=== PATIENT | male | born 1990 | race Caucasian/White ===

== ENCOUNTER 2024-02-03 08:44 | Outpatient (CLI) | payer OTHER, SELFPAY ==
[2024-02-03 09:06] LABS: Basophils % 0.4 % (0.1-2.0); Eosinophils # 0.1 K/mm3 (0.0-0.4); Eosinophils % 0.7 % (0.1-12.0); Hematocrit 48.7 % (42.0-52.0); Hemoglobin 16.7 g/dL (14.1-18.0); Lymphocytes # 1.8 K/mm3 (0.7-4.5); Lymphocytes % 16.1 % (10-50); Mean Corpuscular HGB Conc 34.4 g/dL (31.8-35.4); Mean Corpuscular Hemoglobin 32.5 pg (27.0-31.2); Mean Corpuscular Volume 94.5 fl (80-94); Mean Platelet Volume 7.6 fl (7.4-10.4); Monocytes # 0.7 K/mm3 (0.1-1.0); Monocytes % 6.2 % (1.7-9.3); Neutrophils # 8.6 K/mm3 (1.8-7.8); Neutrophils % 76.7 % (37.0-80.0); Platelet Count 208 K/mm3 (142-424); Red Blood Count 5.15 M/mm3 (4.60-6.20); Red Cell Distribution Width 12.7 % (11.5-17.5); White Blood Count 11.2 K/mm3 (4.8-10.8)
--- NOTE | 2024-02-03 09:38 | CT_ITS ---
FINAL REPORT TECHNIQUE: Postcontrast axial images through the abdomen and pelvis were performed. This study was performed with techniques to keep radiation doses as low as reasonably achievable, (ALARA). Individualized dose reduction techniques using automated exposure control or adjustment of mA and/or kV according to the patient's size were employed. CLINICAL HISTORY: LOWER ABD PAIN,BOWEL CHANGES,H/O DIVERTICULITIS FINDINGS: Abdomen: The lung bases are clear. The liver is normal in size and attenuation. The gallbladder is normal. The spleen is unremarkable. The adrenals are normal. The pancreas is unremarkable. The kidneys enhance appropriately. The aorta is normal in caliber. No free fluid or adenopathy is identified. No findings for mechanical bowel obstruction are identified. Pelvis: The appendix is unremarkable. There is wall thickening with surrounding inflammation of the proximal sigmoid colon most consistent with diverticulitis. There is no evidence of obstruction or abscess. There is extensive underlying diverticular disease. The urinary bladder is unremarkable. No free fluid, free air, abscess or adenopathy is identified. IMPRESSION: Diverticulitis of the proximal sigmoid colon without obstruction or abscess. Reviewed, Interpreted and Dictated by Aarti Rosas MD Transcribed by Adriane Thomas Authenticated and [facility]
[2024-02-03 10:09] LABS: Chloride 105 mmol/L (98-107); Potassium 4.2 mmoL/L (3.5-5.1); Sodium 140 mmol/L (136-145)
[2024-02-03 10:11] LABS: Alanine Aminotransferase 47 U/L (12-78); Aspartate Amino Transferase 39 U/L (17-59); Blood Urea Nitrogen 18 mg/dl (9-20); Estimated Glomerular Filt Rate 128 ml/min (>60); GFR (African American) 155 ML/MIN (>60)
[2024-02-03 10:12] LABS: Albumin Level 4.1 g/dl (3.5-5.0); Albumin/Globulin Ratio 1.5 (1.1-1.8); Alkaline Phosphatase 71 U/L (38-126); Anion Gap 8.2 mEq/L (5-15); Bilirubin,Total 1.6 mg/dl (0.2-1.3); Calcium 9.6 mg/dl (8.4-10.2); Carbon Dioxide 31 mmol/L (22.0-30.0); Globulin 2.8 g/dL (1.3-3.2); Glucose 124 mg/dl (74-100); Total Protein,Serum 6.9 g/dl (6.3-8.2)
[2024-02-03] MEDS: IOPAMIDOL-370 (76%);100ML BOTTLE 75 ML IV (10:59)
[2024-02-03] MEDS: SODIUM CHLORIDE 0.9% 10ML SYR (RAD ONLY) 10 ML IV (10:59)
== END 2024-02-03 23:59 | disposition home or self-care (01) ==
PROVIDERS: PCP Nurse Practitioner Family; Visit Provider Nurse Practitioner Family
DX: R10.30 Lower abdominal pain, unspecified (principal); R19.4 Change in bowel habit; Z87.19 Personal history of other diseases of the digestive system
CPT/HCPCS: 36415; 74177; 80053; 85025; Q9967

== ENCOUNTER 2024-10-25 10:46 | Outpatient (CLI) | payer OTHER, SELFPAY ==
--- NOTE | 2024-10-25 10:54 | XR_ITS ---
FINAL REPORT CLINICAL HISTORY: ULCER OF RIGHT FOOT, LIMITED TO BREAKDOWN OF SKIN FINDINGS: Right foot Three views were obtained. There is sideplate and screws securing the distal fibula. There is a disrupted transverse screw securing the distal fibula and tibia. There is an osteophyte along the dorsal aspect of the distal talus. There is a small plantar spur. IMPRESSION: Post surgical changes as above. Reviewed, Interpreted and Dictated by Ferny Capone MD Transcribed by Adriane Thomas Authenticated and [facility]
== END 2024-10-25 23:59 | disposition home or self-care (01) ==
LOC: RAD 10:48
PROVIDERS: PCP Nurse Practitioner Family; Visit Provider Internal Medicine Adolescent Medicine
DX: L97.511 Non-pressure chronic ulcer of other part of right foot limited to breakdown of skin (principal); B95.4 Other streptococcus as the cause of diseases classified elsewhere
CPT/HCPCS: 73630; 87070; 87077; 87205

== ENCOUNTER 2024-11-28 18:48 | Outpatient (CLI) | payer OTHER, SELFPAY | END 2024-11-28 23:59 | disposition home or self-care (01) | LOC: LAB.DROPOF 18:56 | PROVIDERS: PCP Podiatrist; Visit Provider Podiatrist | DX: L97.509 Non-pressure chronic ulcer of other part of unspecified foot with unspecified severity (principal); E11.621 Type 2 diabetes mellitus with foot ulcer; L84 Corns and callosities | CPT/HCPCS: 87070; 87077; 87186; 87205 ==

== ENCOUNTER 2024-12-05 09:38 | Outpatient (CLI) | payer OTHER, SELFPAY ==
--- NOTE | 2024-12-05 09:45 | XR_ITS ---
FINAL REPORT CLINICAL HISTORY: Foot Pain diabetic ulcer plantar surface, around 3-5 metatarsal area COMPARISON: 10/25/2024 FINDINGS: Three views of the right foot show no evidence of acute displaced fracture or dislocation of the visualized bony architecture. There are moderate degenerative changes at the midfoot. Nonspecific sclerosis is noted along the bases of the third and fourth digits which could be degenerative or chronic infection. There are moderate degenerative changes of the talonavicular joint. Post-ORIF changes are noted of the distal fibula. IMPRESSION: Chronic changes as above without evidence of bony destruction. Reviewed, Interpreted and Dictated by Aarti Rosas MD Transcribed by Jaye Chaidez Authenticated and [facility]
[2024-12-05 10:12] LABS: Basophils % 0.4 % (0.1-2.0); Eosinophils # 0.1 K/mm3 (0.0-0.4); Eosinophils % 1.3 % (0.1-12.0); Hematocrit 48.3 % (42.0-52.0); Hemoglobin 17.4 g/dL (14.1-18.0); Lymphocytes # 1.7 K/mm3 (0.7-4.5); Lymphocytes % 24.5 % (10-50); Mean Corpuscular Hemoglobin 31.4 pg (27.0-31.2); Mean Corpuscular Volume 87.2 fl (80-94); Monocytes # 0.7 K/mm3 (0.1-1.0); Monocytes % 10.1 % (1.7-9.3); Neutrophils # 4.3 K/mm3 (1.8-7.8); Neutrophils % 63.4 % (37.0-80.0); Platelet Count 241 K/mm3 (142-424); Red Blood Count 5.54 M/mm3 (4.60-6.20); Red Cell Distribution Width 12.1 % (11.5-17.5); White Blood Count 6.8 K/mm3 (4.8-10.8)
[2024-12-05 10:40] LABS: Alanine Aminotransferase 53 U/L (12-78); Albumin Level 4.7 g/dl (3.5-5.0); Albumin/Globulin Ratio 1.7 (1.1-1.8); Alkaline Phosphatase 63 U/L (38-126); Anion Gap 12.2 mEq/L (5-15); Aspartate Amino Transferase 53 U/L (17-59); Bilirubin,Total 1.2 mg/dl (0.2-1.3); Blood Urea Nitrogen 16 mg/dl (9-20); Calcium 9.7 mg/dl (8.4-10.2); Carbon Dioxide 31 mmol/L (22.0-30.0); Chloride 102 mmol/L (98-107); Estimated Glomerular Filt Rate 109 ml/min (>60); GFR (African American) 132 ML/MIN (>60); Globulin 2.7 g/dL (1.3-3.2); Glucose 181 mg/dl (74-100); Potassium 4.2 mmoL/L (3.5-5.1); Sodium 141 mmol/L (136-145); Total Protein,Serum 7.4 g/dl (6.3-8.2)
[2024-12-05 10:45] LABS: C-Reactive Protein 2.6 mg/L (0-4)
[2024-12-05 10:50] LABS: Erythrocyte Sedimentation Rate 3 mm/hr (0-15)
== END 2024-12-05 23:59 | disposition home or self-care (01) ==
LOC: LAB 09:38
PROVIDERS: PCP Nurse Practitioner Family; Visit Provider Podiatrist
DX: R60.9 Edema, unspecified (principal); M79.671 Pain in right foot
CPT/HCPCS: 36415; 73630; 80053; 85025; 85651; 86140

== ENCOUNTER 2024-12-28 08:03 | Outpatient (RCR) | payer OTHER, SELFPAY ==
--- NOTE | 2024-12-28 16:33 | HMH.PTOPWND ---
Rehab Outpt Wound Evaluation Rehab OP Wound Evaluation Start: 12/28/24 16:24 Freq: Status: Active Protocol: Document 12/28/24 16:24 TIFFANY (Rec: 12/28/24 16:33 PHORCORDELIA [id number]) E-signed By Kamran Zelaya, PT Subjective/History History History This is the initial PT wound care eval for Wade Acosta, 34 yowm who presents with R lateral foot DFU x ~ 2 mos. 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 This blister spread to a callus on the lateral side of his foot which then became an abscess. He reports no c/o pain at this time. Subjective Subjective Pt R foot tested for neuropathy with 10g monofilament. R foot with decreased sensation from the ankle distally. R lateral foot wound with MOODERATE amt of sanguineous drainage noted this date. Mostly granulation tissue, but hyperkeratotic rim is noted. Wound Eval Wound Right Lateral Foot Wound Type Diabetic Foot Ulcer Is This a Chronic Wound Yes Wound Length (cm) 1.9 Wound Width (cm) 2.2 Wound Depth (cm) 0.3 Wound Bed Appearance Beefy Red Percentage Granulated (%) 99 Wound Margins Description Well Defined Surrounding Tissue Appearance [place] Drainage Description Sanguineous Drainage Amount Moderate Drainage Odor No Odor Wound Topical Solution/Irrigant Saline Irrigant Primary Dressing collagen Comment puracol Wound Secondary Dressing Type Composite Comment optifoam gentle border Wound Debridement Method Sharps,Gauze,Mechanical Wound Debridement Amount of Tissue Minimal Removed Dressing Change Patient Tolerance Tolerated Well Mariano-Garza Wound Assessment Tool Assessment Wound size 2=Length x Width 4--<16 sq cm Wound depth 3=Full thickness skin loss involving damage or necrosis of Wound edges 3=Well-defined, not attached to wound base Wound undermining 1=None present Necrotic tissue type 1=Non visible Necrotic tissue amount 1=None visible Exudate type 2=Bloody Exudate amount 4=Moderate Skin color surrounding wound 1=[place] or normal for ethnic group Peripheral tissue edema 1=No swelling or edema Peripheral tissue induration 1=None present Granulation tissue 2=Bright, beefy red;75% to 100 % of wound filled &/or tissue overgrowth Epithelialization 5= < 25% wound covered Wound assessment total score 27 Wound Problems/Impairments Impairments Problems/Impairmments Wound Care Needs,Impaired Self Care/Self Management Prognosis Rehab Potential Good Comment Skilled therapy is indicated to decrease overall wound surface area in order to return pt to PLOF. Clinical Impression Consistent with Diagnosis Yes Short Term Goals Number of Weeks 4 Decrease Wound Area Yes: by 25% Salesperson [employer] Goals Number of Weeks 8 Decrease Wound Area Yes: by 75% Patient to be Ind w/ HEP Yes Patient to be Ind w/ Home Wound Care/ Yes Dressing Changes Outpatient Therapy Plan of Care Treatment Plan May Include Therapeutic Exercise Including Home Yes Exercise Program Manual Therapy Techniques Yes Neuromuscular Re-education Yes Therapeutic Activities to Return to Yes Previous Functional/Work Level ADL/Self Care Education Yes Wound Care Yes Eval/Re-Eval Yes Frequency Times per week 1-2 Duration Number of Weeks 8 Addendums This patient is a candidate for social No or vocational rehab? Patient/Guardian verbally acknowledges Yes understanding of treatment program and consents to further treatment? Patient/Guardian verbally acknowledges Yes understanding of diagnosis, prognosis and goals for treatment? Eval Complexity PT Charges 06597 - High Complexity PHYSICIAN CERTIFICATION: I certify the specified therapy services for Wade Acosta are required, authorized, and reviewed every 30 days.
== END 2024-12-28 23:59 | disposition home or self-care (01) ==
LOC: PT 08:03
PROVIDERS: PCP Nurse Practitioner Family; Visit Provider Podiatrist
DX: E11.621 Type 2 diabetes mellitus with foot ulcer (principal); L97.519 Non-pressure chronic ulcer of other part of right foot with unspecified severity
CPT/HCPCS: 97163

== ENCOUNTER 2025-01-23 08:00 | Outpatient (RCR) | payer OTHER, SELFPAY | END 2025-01-23 23:59 | disposition home or self-care (01) | LOC: PT 08:00 | PROVIDERS: PCP Nurse Practitioner Family; Visit Provider Podiatrist | DX: E11.621 Type 2 diabetes mellitus with foot ulcer (principal); L97.519 Non-pressure chronic ulcer of other part of right foot with unspecified severity | CPT/HCPCS: 97597 ==

== ENCOUNTER 2025-02-06 09:00 | Outpatient (CLI) | payer OTHER, SELFPAY | END 2025-02-06 23:59 | disposition home or self-care (01) | LOC: LAB.DROPOF 02-07 12:14 | PROVIDERS: PCP Nurse Practitioner; Visit Provider Nurse Practitioner | DX: E11.621 Type 2 diabetes mellitus with foot ulcer (principal); L97.509 Non-pressure chronic ulcer of other part of unspecified foot with unspecified severity | CPT/HCPCS: 87070; 87205 ==

== ENCOUNTER 2025-02-08 16:19 | Outpatient (CLI) | payer OTHER, SELFPAY ==
--- NOTE | 2025-02-08 16:33 | XR_ITS ---
FINAL REPORT CLINICAL HISTORY: Right foot DFU COMPARISON: 12/05/2024 FINDINGS: RIGHT FOOT 3 views of the right foot were obtained. There is no acute fracture or dislocation. There are moderate hypertrophic changes at the intertarsal joints. An os trigonum measures 10 mm. There is soft tissue edema over the dorsum of the foot measuring 2.1 cm. There is no evidence of bony erosion. A sideplate and screws are noted securing the distal fibula. IMPRESSION: No acute bony abnormality. Soft tissue edema and chronic/surgical changes. Reviewed, Interpreted and Dictated by Ferny Capone MD Transcribed by Jaye Chaidez Authenticated and [facility]
[2025-02-08 17:01] LABS: Basophils % 0.2 % (0.1-2.0); Eosinophils % 0.1 % (0.1-12.0); Hematocrit 44.2 % (42.0-52.0); Hemoglobin 15.7 g/dL (14.1-18.0); Immature Granulocytes # 0.06 10^3uL; Immature Granulocytes % 0.3 %; Lymphocytes # 1.7 K/mm3 (0.7-4.5); Lymphocytes % 9.7 % (10-50); Mean Corpuscular HGB Conc 35.5 g/dL (31.8-35.4); Mean Corpuscular Hemoglobin 30.8 pg (27.0-31.2); Mean Corpuscular Volume 86.7 fl (80-94); Monocytes # 1.4 K/mm3 (0.1-1.0); Monocytes % 7.9 % (1.7-9.3); Neutrophils # 14.4 K/mm3 (1.8-7.8); Neutrophils % 81.8 % (37.0-80.0); Nucleated Red Blood Cells # 0 10^3/uL; Nucleated Red Blood Cells % 0 %; Platelet Count 273 K/mm3 (142-424); Red Cell Distribution Width 11.8 % (11.5-17.5); Red Cell Distribution Width-SD 37.4 fL; White Blood Count 17.7 K/mm3 (4.8-10.8)
[2025-02-08 18:06] LABS: Erythrocyte Sedimentation Rate 21 mm/hr (0-15)
[2025-02-08 19:06] LABS: Alanine Aminotransferase 21 U/L (12-78); Albumin Level 4.3 g/dl (3.5-5.0); Albumin/Globulin Ratio 1.4 (1.1-1.8); Alkaline Phosphatase 77 U/L (38-126); Aspartate Amino Transferase 26 U/L (17-59); Bilirubin,Total 1.4 mg/dl (0.2-1.3); Blood Urea Nitrogen 20 mg/dl (9-20); Calcium 9.2 mg/dl (8.4-10.2); Carbon Dioxide 26 mmol/L (22.0-30.0); Chloride 102 mmol/L (98-107); Estimated Glomerular Filt Rate 109 ml/min (>60); GFR (African American) 132 ML/MIN (>60); Glucose 140 mg/dl (74-100); Sodium 136 mmol/L (136-145); Total Protein,Serum 7.3 g/dl (6.3-8.2)
[2025-02-08 19:12] LABS: C-Reactive Protein 61.2 mg/L (0-4)
[2025-02-08 22:32] LABS: Hemoglobin A1C 5.7 % (4.0-6.0)
== END 2025-02-08 23:59 | disposition home or self-care (01) ==
LOC: LAB 16:20
PROVIDERS: PCP Nurse Practitioner Family; Visit Provider Podiatrist
DX: E11.621 Type 2 diabetes mellitus with foot ulcer (principal); L97.509 Non-pressure chronic ulcer of other part of unspecified foot with unspecified severity; M79.671 Pain in right foot
CPT/HCPCS: 36415; 73630; 80053; 83036; 85025; 85651; 86140

== ENCOUNTER 2025-02-12 09:30 | Outpatient (CLI) | payer OTHER, SELFPAY | END 2025-02-12 23:59 | disposition home or self-care (01) | LOC: LAB.DROPOF 02-13 13:56 | PROVIDERS: PCP Podiatrist; Visit Provider Podiatrist | DX: L03.115 Cellulitis of right lower limb (principal); E11.8 Type 2 diabetes mellitus with unspecified complications; E11.621 Type 2 diabetes mellitus with foot ulcer; L97.509 Non-pressure chronic ulcer of other part of unspecified foot with unspecified severity | CPT/HCPCS: 87070; 87077; 87186; 87205 ==

== ENCOUNTER 2025-03-07 15:11 | Outpatient (CLI) | payer OTHER, SELFPAY ==
[2025-03-07 15:35] LABS: Basophils % 0.3 % (0.1-2.0); Eosinophils # 0.1 Kmm3 (0.0-0.4); Eosinophils % 1.6 % (0.1-12.0); Hematocrit 41.2 % (42.0-52.0); Hemoglobin 14.7 g/dL (14.1-18.0); Immature Granulocytes # 0.03 10^3uL; Immature Granulocytes % 0.4 %; Lymphocytes # 2.6 K/mm3 (0.7-4.5); Lymphocytes % 34.7 % (10-50); Mean Corpuscular HGB Conc 35.7 g/dL (31.8-35.4); Mean Corpuscular Hemoglobin 30.6 pg (27.0-31.2); Mean Corpuscular Volume 85.8 fl (80-94); Monocytes # 0.7 K/mm3 (0.1-1.0); Monocytes % 8.6 % (1.7-9.3); Neutrophils # 4.1 K/mm3 (1.8-7.8); Neutrophils % 54.4 % (37.0-80.0); Nucleated Red Blood Cells # 0 10^3/uL; Nucleated Red Blood Cells % 0 %; Platelet Count 224 K/mm3 (142-424); Red Cell Distribution Width 12.4 % (11.5-17.5); Red Cell Distribution Width-SD 38.3 fL; White Blood Count 7.5 K/mm3 (4.8-10.8)
--- NOTE | 2025-03-07 15:45 | CT_ITS ---
FINAL REPORT TECHNIQUE: Thin section axial images were obtained through the right foot before and after intravenous contrast injection. Coronal and sagittal reconstruction images were obtained from the axial data. Exam was performed using dose reduction technique per the ALARA principle. CLINICAL HISTORY: r/o 5th met osteomyelitis, abscess COMPARISON: Plain radiographs dated 02/08/2025 FINDINGS: Exam quality is limited as there is poor contrast bolus. Additionally, soft tissue windows were not submitted for interpretation. Only bone windows were submitted. There is subtle cortical irregularity along the plantar aspect of the head of the fifth metatarsal. Osteomyelitis is suspected. Otherwise, there is no acute fracture or dislocation of the foot. No additional areas of possible bone destruction. There is degenerative joint disease most pronounced at the lateral midfoot. There are postoperative changes from prior ORIF at the ankle. The screw traversing the distal tibiofibular articulation may be discontinuous near the joint space itself. Evaluation is somewhat limited by artifact. There are several well-corticated calcifications distal to the tip of the medial malleolus which could be related to old avulsion fragments. Calcification is noted adjacent to the lateral anterior calcaneus. As above, there is poor contrast opacification. There is soft tissue edema of the lateral forefoot, most pronounced in the region of the fifth MTP joint. There is a soft tissue defect along the plantar aspect of the lateral forefoot at the level of the head of the fifth metatarsal. Otherwise, there is no significant subcutaneous air. There is fluid density surrounding the fifth MTP joint. A peripherally enhancing fluid collection is not identified although evaluation limited. There is no foreign body. Remaining soft tissues are without acute abnormality. IMPRESSION: 1. Technically limited exam as there is a poor contrast bolus. Soft tissue windows were also not obtained separately. 2. Area of cortical irregularity along the plantar aspect of the head of the fifth metatarsal. Osteomyelitis suspected. Consider MRI. 3. Soft tissue edema of the lateral forefoot with a soft tissue defect. Favor cellulitis surrounding an ulceration. No convincing peripherally enhancing, loculated fluid collection given limitations of exam. 4. Postoperative changes at the ankle. The tibiofibular screw may be fractured. Please correlate with the type of screw that was placed at this location as well as prior plain radiographs of the ankle. Authenticated and [facility]
[2025-03-07] MEDS: SODIUM CHLORIDE 0.9% 10ML SYR (RAD ONLY) 10 ML IV (15:48)
[2025-03-07] MEDS: IOPAMIDOL-370 (76%);100ML BOTTLE 75 ML IV (15:48)
[2025-03-07 15:56] LABS: Erythrocyte Sedimentation Rate 14 mm/hr (0-15)
[2025-03-07 16:21] LABS: Alanine Aminotransferase 21 U/L (12-78); Albumin Level 3.9 g/dl (3.5-5.0); Albumin/Globulin Ratio 1.3 (1.1-1.8); Alkaline Phosphatase 71 U/L (38-126); Anion Gap 9.9 mEq/L (5-15); Aspartate Amino Transferase 31 U/L (17-59); Bilirubin,Total 0.7 mg/dl (0.2-1.3); Blood Urea Nitrogen 20 mg/dl (9-20); Calcium 8.9 mg/dl (8.4-10.2); Carbon Dioxide 29 mmol/L (22.0-30.0); Chloride 107 mmol/L (98-107); Estimated Glomerular Filt Rate 109 ml/min (>60); GFR (African American) 132 ML/MIN (>60); Globulin 3.1 g/dL (1.3-3.2); Glucose 99 mg/dl (74-100); Potassium 3.9 mmoL/L (3.5-5.1); Sodium 142 mmol/L (136-145)
[2025-03-07 16:26] LABS: C-Reactive Protein 1.7 mg/L (0-4)
== END 2025-03-07 23:59 | disposition home or self-care (01) ==
LOC: RAD 15:11
PROVIDERS: PCP Internal Medicine Adolescent Medicine; Visit Provider Podiatrist
DX: M79.89 Other specified soft tissue disorders (principal); R93.6 Abnormal findings on diagnostic imaging of limbs; L02.611 Cutaneous abscess of right foot; L03.115 Cellulitis of right lower limb; E11.621 Type 2 diabetes mellitus with foot ulcer; L97.509 Non-pressure chronic ulcer of other part of unspecified foot with unspecified severity
CPT/HCPCS: 36415; 73702; 80053; 85025; 85651; 86140; Q9967

== ENCOUNTER 2025-03-12 11:02 | Outpatient (CLI) | payer OTHER, SELFPAY ==
--- NOTE | 2025-03-12 11:13 | ECG_ITS ---
APPROVED REPORT Exam: Resting ECG HR:64 bpm ECG Measurements Heart Rate [address] 162 P 25 QRSd 96 QRS 10 QT 404 T 8 QTc 413 Conclusion SINUS RHYTHM WITH SINUS ARRHYTHMIA NORMAL ECG UNCONFIRMED REPORT Electronically signed by : Ryan Callahan MD 03/13/2025 09:26:40
== END 2025-03-12 23:59 | disposition home or self-care (01) ==
LOC: RT 11:03
PROVIDERS: PCP Internal Medicine Adolescent Medicine; Visit Provider Podiatrist
DX: Z01.810 Encounter for preprocedural cardiovascular examination (principal); I49.8 Other specified cardiac arrhythmias
CPT/HCPCS: 93005

== ENCOUNTER 2025-03-14 11:56 | Day surgery (SDC) | payer OTHER, SELFPAY ==
[2025-03-13 12:45] VITALS: BMI 31.8
[2025-03-14] VITALS (9 sets, daily range): BP systolic 120–133; BP diastolic 63–99; PULSE 57–82; RESP 16–24; TEMP 36.2–36.6; O2SAT 90–99
[2025-03-14] MEDS: LACTATED RINGERS 1000ML 1,000 ML 200 ML IV (12:26)
[2025-03-14 12:38] LABS: POC Glucose,Bedside 94 (70-110)
[2025-03-14] MEDS: VANCOMYCIN HCL 2,500 MG in 0.9 % SODIUM CHLORIDE 500 ML 250 MG IV (13:30)
--- NOTE | 2025-03-14 13:48 | EXP.ANES.CKL ---
[facility] Disclaimer: The information contained in this section may have been updated after the patient was seen, as this information can be updated by other users. Medical History Diverticulitis Diabetes mellitus with foot ulcer Essential hypertension Type 2 diabetes mellitus Surgical History History of ankle surgery Family History Other Family history of myocardial infarction Social History Smoking Status: Never smoker alcohol intake: never substance use type: denies use current occupational status: employed Travel in the last 8 weeks?: None [facility] Anesthesia Checklist Patient Identification Patient Identification: Verbal (Name & ) Structural Data Admitted From: Home Planned Operative Procedure/s: orif r foot Consent for Planned Operative Procedure(s) Verified: Yes NPO Status Verified Time NPO: 00:00 Additional verifications Anesthesia Reactions: No Hx Blood Transfusions: No Blood Transfusion Reaction: No Airway Assessment Mallampati Score:: Class II C-Spine Mobility Assessed: Yes TMJ Mobility Assessed: Yes Dentition: Good Dentition Neurological Assessment Level of Consciousness: Awake, Alert and Appropriate Anesthesia Plan Anesthesia Risk discussed: Yes Anesthesia Plan: Verified ASA Class: II Anesthesia Type: General w/block
[2025-03-14] MEDS: GENTAMICIN 80 MG/2 ML VIAL ×2 (13:57)
--- NOTE | 2025-03-14 15:08 | XR_ITS ---
FINAL REPORT CLINICAL HISTORY: s/p right 5th met resection COMPARISON: None FINDINGS: RIGHT FOOT 3 views of the right foot were obtained. The patient has undergone amputation of the distal fifth metatarsal head and the distal shaft. There are multiple antibiotic seed implants in the surgical bed. There is a sideplate and screws present in the distal fibula. There is a fracture through the most inferior screw which is the long screw extending from the fibula into the distal tibia. Soft tissues are unremarkable. IMPRESSION: Postoperative change with resection of the distal fifth metatarsal as described. Fracture of the distal long screw which extends from the distal fibula into the inferior aspect of the tibia. Reviewed, Interpreted and Dictated by Ferny Capone MD Transcribed by Dayanara Rader Authenticated and . [facility]
--- NOTE | 2025-03-14 15:09 | P.OP_ITS ---
Date of procedure: 03/14/25 Pre-op Diagnosis:: Right DFU Right foot 5th metatarsal OM Right foot hx of abscess Post-op Diagnosis:: Same Procedure performed:: Right foot incision bone cortex for osteomyelitis () with open bone biopsy () Partial excision right 5th metatarsal () Incision and drainage below foot fascia single bursal space () Wide excisional debridement wound/ulcer debridement () Ulcer excision with delayed primary closure Adjacent soft tissue rearrangement (derotational skin flap) Application of antibiotic beads Surgeon:: Louann Dasilva DPM [employer] CURATOR:: Mayo Duncan and Ravinder Jimenez Anesthesia: GETA and regional (R regional nerve block) Estimated blood loss (mL): 20 Clinical Note:: Pre-op Indications: Patient is a 34-year-old diabetic male who presents with a neuropathic ulcer to the right sub fifth metatarsal. Patient has had the ulcer for >6 months. He has had cellulitis, resolved with oral and IM antibiotics. Recent x-rays and CT shows cortical changes to the fifth metatarsal head. There is tracking noted which correlates clinically with the site of prior suspected abscess. Patient has had conservative care including: offloading with Darco APB with peg assist inserts immobilization, U pads/metatarsal pads, weekly wound debridements, labs, wound culture, oral antibiotics as needed. Discussed ulcer likely secondary to pressure point due to his pes cavus foot type. Also discussed possibility of abscess or deep infection like osteomyelitis which would cause the wound to continue to reulcerate and not heal. We discussed conservative versus surgical treatment options. We discussed surgical incision and drainage, wide excisional wound debridement with partial closure, partial met resection to remove 5th met prominence, and obtain bone biopsy. Recommend strict NWB in fx boot with crutches/RKS post-op for at least 3 weeks. Patient understands that they could have wound healing complications including delayed healing and infection. We discussed that if the wound does not heal, it is possible that they may need further debridement. Patient understands if infection spreads further into the bone, it may warrant proximal amputation and could result in further loss of digits, loss of partial foot or loss of leg. We discussed the risks and benefits in great detail. Other surgical risks include: prolonged/permanent pain and swelling, further infection requiring oral or IV antibiotics, delay in healing of soft tissue or bone, nerve or blood vessel damage, CRPS/RSD, DVT/PE, anesthesia complications, and even . All questions answered. Patient verbalized understanding. Verbal and written consent obtained. Operative findings:: Diabetic ulcer noted to the plantar aspect of the fifth metatarsal. Preop wound base was 100% granular and measured approximately 3.1 x 2.7 x 1.5 cm. No new purulence, malodor or drainage noted. 15 blade and forceps used to sharply excisionally debride wound full-thickness through skin, subcutaneous tissue into/including deep fascia. Because of swelling has significantly decreased from the last office visit, decision made to excise the ulcer and attempt delayed primary closure versus rotational skin flap. A separate linear incision was made on the dorsal aspect of the fifth metatarsal full-thickness down to the level of the bone. I&D bone cortex to evaluate for osteomyelitis. No purulence or abscess fluid noted. Sagittal saw used to transect a piece of bone cortex to evaluate for osteomyelitis. There were some changes to the distal fifth metatarsal. The met was soft and appeared a little national stormwater leader yellow?white. This was removed, transected in half and sent for both bone pathology and culture. The remaining metatarsal appeared to be hard, normal texture and color. A piece was transected and sent for proximal margin. The prior abscess infection appears to have been resolved. No sinus tracking appreciated. The ulcer was able to be fully debrided and sent for tissue culture. A hurricane style incision was made on either side of the ulcer both superiorly and inferiorly in order to perform a derotational skin flap/adjacent soft tissue rearrangement to cover the 4 x 3 cm defect left from excising the wound. Skin edges were able to be reapproximated. Prognosis: fair. The soft tissue and remaining bone appeared viable. As long as the patient stays strict nonweightbearing, takes antibiotics, does appropriate dressing changes and follows up he has a fair prognosis for recovery and limb salvage. Operative note:: On this date and time patient was deemed an appropriate surgical candidate. With informed consent signed, the patient was taken to the operating theater. After anesthesia gave regional nerve block. The patient was positioned supine on OR table. General anesthesia was induced. Tourniquet applied to mid calf at 250 mmHg. IV vancomycin infused infused. The right lower extremity was prepped and drapped in normal sterile fashion. Right fifth metatarsal resection, open bone biopsy: Attention was directed to the dorsal aspect of the fifth metatarsal where a linear incision was made full- thickness down to the level of the bone with a 15 blade. No rodrigo purulence expressed. Sagittal saw used to transect the metatarsal head. Incision made within the metatarsal head to evaluate for osteomyelitis. There were some cortical erosions and color changes to the distal metatarsal. Metatarsal head was then transected and a piece for culture and for pathology. Infection appeared to be localized distal to this area. Saw was then used to transect a piece of the fifth metatarsal for proximal margin. Attention was then directed to known infected site plantarly. Right foot I&D (incision and drainage): Attention was directed to the plantar aspect of the foot where DFU was noted. An incision was made on either side of the DFU with a 15 blade full-thickness through skin, subcutaneous into/including deep fascia tissue approximately 2.5 cm deep. No purulence or malodor noted. Right foot irrigation and wide excisional debridement: Attention was directed to the plantar foot where the diabetic foot ulcer noted. Ulcer was excised in an HurriCaine style full-thickness into deep fascia with a 15 blade. The ulcer tissue was sent to culture. All nonviable soft tissue was sharply excisionally debrided. Wound was flushed with gentamicin irrigation and a pulse lavage. Post debridement defect a 4 x 3 x 3 cm. Healthy bleeding skin edges. The wound was reexplored and no further signs of infection noted. No sinus tracking. Bleeding controlled. Vessels ligated with electrocautery as needed. Application of antibiotic beads: [employer] was utilized to make antibiotic beads which were inserted after the wound was right was explored and flushed with gentamicin irrigation. Rotational flap skin closure: Attention was directed back to the plantar foot. The skin edges could not be directly repaired due to the defect. The incision ends had been extended and rotated dorsal lateral to plantar medial close over the soft tissue defect where the ulcer had been excised. Subcutaneous tissue had been repaired with the Vicryl. Antibiotic beads inserted. The skin flap was repaired with prolene. Skin was closed with no defect remaining. Centrally at the apex of the plantar incision the skin was tight but no defect remained. Successful rotational flap covering the 4 x 3 cm defect. The skin was cleansed. Tourniquet deflated and immediate hyperemic response was noted to the digits. The flap site did have normal color and no signs of blanching or early necrosis.Betadine soaked 4 x 4's followed by dry sterile dressing applied to the foot. The patient tolerated the procedure and anesthesia well, without complications. The patient was awoken from anesthesia and transferred to recovery with vital signs stable and neurovascular status intact. Materials: Cerament G (drug delivery system with gentamicin), Prolene Plan: Patient is to maintain dressing clean dry and intact. will do Betadine dressing change and 2-3 days. Strict non weight bearing to the right foot in short fracture boot with crutches, rolling knee scooter. Obtain post op films, right foot, 3 views. Plan for dressing change and skin check on Wednesday. Tourniquet time (min): 52 Condition: stable Disposition: same day Specimens:: Right foot ulcer tissue culture Right fifth metatarsal bone culture Right fifth metatarsal bone path Right fifth metatarsal proximal margin Complications:: None
--- NOTE | 2025-03-14 15:10 | P.PNANES_ITS ---
[facility] Anesthesia Record Part I Anesthesia Record I Intake, IV Amount: 1,000 Hydration: Adequate Estimated blood loss (mL): 2 Urine output (mL): 0 Blood Products used (#): none Blood Pressure: 133/78 SaO2: 90 Pulse Rate: 82 Airway Patency: Patent Respiratory Rate: 24 Temperature: 97.8 F Patient is:: Drowsy and Stable Stable to PACU at:: 15:00
--- NOTE | 2025-03-15 08:31 | EXP.ANES.II ---
[facility] Anesthesia Record Part II Anesthesia Record Part II Discharge Time: 15:30 Destination: [facility] PACU nurse assessment reviewed?: Yes Patient Condition:: Good Anesthesia Complications:: None Swallowing reflex intact?: Yes Airway Patency: Patent Cyanosis?: No Blood Pressure: 131/79 SaO2: 93 Respiratory Rate: 16 Pulse Rate: 65 Temperature: 97.8 F Mental Status: Alert & Oriented Pain level:: 0 Nausea and/or vomitting:: None Intake, IV Amount: 1,500 Hydration: Adequate
[2025-03-15 08:32] VITALS: BP 131/79; PULSE 65; RESP 16; TEMP 36.6; O2SAT 93
== END 2025-03-14 16:00 | disposition home or self-care (01) ==
PROVIDERS: PCP Internal Medicine Adolescent Medicine; Visit Provider Podiatrist
PROC: (CPT 20240; principal; 2025-03-14 13:30)
DX: E11.621 Type 2 diabetes mellitus with foot ulcer (principal); M86.8X7 Other osteomyelitis, ankle and foot; L02.611 Cutaneous abscess of right foot; L97.519 Non-pressure chronic ulcer of other part of right foot with unspecified severity; I10 Essential (primary) hypertension; Z79.84 Long term (current) use of oral hypoglycemic drugs; Z79.899 Other long term (current) drug therapy
CPT/HCPCS: 20240; 28002; 28005; 28122; 73630; 82962; 87070; 87077; 87205; 88304; C1602; J0665; J1100; J1580; J2003; J2250; J2405; J2704; J3010; J3370; J7040; J7120

== ENCOUNTER 2025-03-30 07:13 | Outpatient (CLI) | payer OTHER, SELFPAY ==
--- NOTE | 2025-03-30 07:23 | XR_ITS ---
FINAL REPORT TECHNIQUE: Views right foot CLINICAL HISTORY: RF SX f/u COMPARISON: 03/14/2025 FINDINGS: RIGHT FOOT: 3 images of the right foot were obtained. There is dystrophic calcification in the fifth metatarsal resection bed, some of which may be secondary to resorbing antibiotic beads. No definite bone destruction is identified. There is minimal cortical thickening involving the proximal fourth metatarsal cortex. No new bony abnormalities are identified. There is no new soft tissue abnormality identified. IMPRESSION: 1. There are evolving postoperative changes in the fifth metatarsal, recommend continued follow-up. Reviewed, Interpreted and Dictated by Aarti Rosas MD Transcribed by Dayanara Rader Authenticated and [facility]
[2025-03-30 08:20] LABS: Basophils % 0.5 % (0.1-2.0); Eosinophils # 0.2 Kmm3 (0.0-0.4); Eosinophils % 2.6 % (0.1-12.0); Hematocrit 45.3 % (42.0-52.0); Hemoglobin 15.4 g/dL (14.1-18.0); Immature Granulocytes # 0.01 10^3uL; Immature Granulocytes % 0.1 %; Lymphocytes # 2.5 K/mm3 (0.7-4.5); Lymphocytes % 32.8 % (10-50); Mean Corpuscular Hemoglobin 29.4 pg (27.0-31.2); Mean Corpuscular Volume 86.6 fl (80-94); Mean Platelet Volume 10.2 fl (7.4-10.4); Monocytes # 0.8 K/mm3 (0.1-1.0); Monocytes % 10.7 % (1.7-9.3); Neutrophils % 53.3 % (37.0-80.0); Nucleated Red Blood Cells # 0 10^3/uL; Nucleated Red Blood Cells % 0 %; Platelet Count 209 K/mm3 (142-424); Red Blood Count 5.23 M/mm3 (4.60-6.20); Red Cell Distribution Width 12.3 % (11.5-17.5); Red Cell Distribution Width-SD 39.1 fL; White Blood Count 7.6 K/mm3 (4.8-10.8)
[2025-03-30 08:38] LABS: Albumin Level 4.2 g/dl (3.5-5.0); Chloride 99 mmol/L (98-107); Potassium 4.2 mmoL/L (3.5-5.1); Sodium 139 mmol/L (136-145)
[2025-03-30 08:40] LABS: Blood Urea Nitrogen 23 mg/dl (9-20); Estimated Glomerular Filt Rate 128 ml/min (>60); GFR (African American) 154 ML/MIN (>60)
[2025-03-30 08:41] LABS: Alanine Aminotransferase 20 U/L (12-78); Albumin/Globulin Ratio 1.4 (1.1-1.8); Alkaline Phosphatase 74 U/L (38-126); Anion Gap 14.2 mEq/L (5-15); Aspartate Amino Transferase 30 U/L (17-59); Bilirubin,Total 1.3 mg/dl (0.2-1.3); Calcium 9.4 mg/dl (8.4-10.2); Carbon Dioxide 30 mmol/L (22.0-30.0); Glucose 120 mg/dl (74-100); Total Protein,Serum 7.2 g/dl (6.3-8.2)
[2025-03-30 09:10] LABS: Erythrocyte Sedimentation Rate 5 mm/hr (0-15)
== END 2025-03-30 23:59 | disposition home or self-care (01) ==
LOC: RAD 07:14
PROVIDERS: PCP Nurse Practitioner Family; Visit Provider Podiatrist
DX: Z09 Encounter for follow-up examination after completed treatment for conditions other than malignant neoplasm (principal); Z98.890 Other specified postprocedural states
CPT/HCPCS: 36415; 73630; 80053; 85025; 85651; 86140

== ENCOUNTER 2025-05-08 09:16 | Outpatient (CLI) | payer OTHER, SELFPAY ==
[2025-05-08 10:21] LABS: Hematocrit 45.9 % (42.0-52.0); Hemoglobin 15.7 g/dL (14.1-18.0); Immature Granulocytes % 0.3 %; Mean Corpuscular HGB Conc 34.2 g/dL (31.8-35.4); Mean Corpuscular Hemoglobin 29.5 pg (27.0-31.2); Mean Corpuscular Volume 86.3 fl (80-94); Nucleated Red Blood Cells % 0 %; Platelet Count 223 K/mm3 (142-424); Red Blood Count 5.32 M/mm3 (4.60-6.20); Red Cell Distribution Width-SD 39.0 fL; White Blood Count 6.4 K/mm3 (4.8-10.8)
[2025-05-08 10:41] LABS: Hemoglobin A1C 5.2 % (4.0-6.0)
[2025-05-08 10:42] LABS: Chloride 102 mmol/L (98-107)
[2025-05-08 10:43] LABS: Albumin Level 3.6 g/dl (3.5-5.0); Potassium 4.3 mmoL/L (3.5-5.1); Sodium 137 mmol/L (136-145)
[2025-05-08 10:45] LABS: Blood Urea Nitrogen 12 mg/dl (9-20); Creatinine,Serum 0.70 mg/dl (0.66-1.25); Estimated Glomerular Filt Rate 128 ml/min (>60); GFR (African American) 154 ML/MIN (>60)
[2025-05-08 10:46] LABS: Alanine Aminotransferase 23 U/L (12-78); Albumin/Globulin Ratio 1.0 (1.1-1.8); Alkaline Phosphatase 93 U/L (38-126); Anion Gap 9.3 mEq/L (5-15); Aspartate Amino Transferase 32 U/L (17-59); Bilirubin,Total 0.5 mg/dl (0.2-1.3); Calcium 9.5 mg/dl (8.4-10.2); Carbon Dioxide 30 mmol/L (22.0-30.0); Globulin 3.6 g/dL (1.3-3.2); Glucose 138 mg/dl (74-100); Total Protein,Serum 7.2 g/dl (6.3-8.2)
[2025-05-08 10:51] LABS: C-Reactive Protein 2.1 mg/L (0-4)
== END 2025-05-08 23:59 | disposition home or self-care (01) ==
LOC: LAB 09:18
PROVIDERS: PCP Internal Medicine Adolescent Medicine; Visit Provider Podiatrist
DX: E11.621 Type 2 diabetes mellitus with foot ulcer (principal); L97.509 Non-pressure chronic ulcer of other part of unspecified foot with unspecified severity
CPT/HCPCS: 36415; 80053; 83036; 85025; 85651; 86140

== ENCOUNTER 2025-07-03 10:15 | Outpatient (CLI) | payer OTHER, SELFPAY ==
[2025-07-03 10:54] LABS: Hematocrit 46.5 % (42.0-52.0); Hemoglobin 16.2 g/dL (14.1-18.0); Immature Granulocytes % 0.1 %; Mean Corpuscular HGB Conc 34.8 g/dL (31.8-35.4); Mean Corpuscular Hemoglobin 30.4 pg (27.0-31.2); Mean Corpuscular Volume 87.2 fl (80-94); Nucleated Red Blood Cells % 0 %; Platelet Count 239 K/mm3 (142-424); Red Blood Count 5.33 M/mm3 (4.60-6.20); Red Cell Distribution Width-SD 38.7 fL; White Blood Count 7.7 K/mm3 (4.8-10.8)
[2025-07-03 11:26] LABS: Alanine Aminotransferase 22 U/L (12-78); Albumin Level 4.1 g/dl (3.5-5.0); Albumin/Globulin Ratio 1.4 (1.1-1.8); Alkaline Phosphatase 95 U/L (38-126); Anion Gap 12.5 mEq/L (5-15); Aspartate Amino Transferase 26 U/L (17-59); Bilirubin,Total 1.0 mg/dl (0.2-1.3); Blood Urea Nitrogen 11 mg/dl (9-20); Calcium 9.6 mg/dl (8.4-10.2); Carbon Dioxide 30 mmol/L (22.0-30.0); Chloride 102 mmol/L (98-107); Creatinine,Serum 0.80 mg/dl (0.66-1.25); Estimated Glomerular Filt Rate 109 ml/min (>60); GFR (African American) 132 ML/MIN (>60); Globulin 2.9 g/dL (1.3-3.2); Glucose 100 mg/dl (74-100); Potassium 4.5 mmoL/L (3.5-5.1); Sodium 140 mmol/L (136-145); Total Protein,Serum 7.0 g/dl (6.3-8.2)
[2025-07-03 11:31] LABS: C-Reactive Protein 2.1 mg/L (0-4)
== END 2025-07-03 23:59 | disposition home or self-care (01) ==
LOC: LAB 10:19
PROVIDERS: PCP Internal Medicine Adolescent Medicine; Visit Provider Podiatrist
DX: E11.621 Type 2 diabetes mellitus with foot ulcer (principal); L97.509 Non-pressure chronic ulcer of other part of unspecified foot with unspecified severity; L02.611 Cutaneous abscess of right foot
CPT/HCPCS: 36415; 80053; 85025; 85651; 86140; 87070; 87205

== ENCOUNTER 2025-07-10 11:10 | Outpatient (CLI) | payer OTHER, SELFPAY ==
--- NOTE | 2025-07-10 11:15 | US_ITS ---
FINAL REPORT CLINICAL HISTORY: Symptoms and signs involving the Circulatory Stms Right foot ulcer H/O DM COMPARISON: None FINDINGS: ANKLE-BRACHIAL PRESSURE INDICES Pressure indices are as follows: RIGHT LOWER EXTREMITY: Ankle-brachial pressure index: 1.23 Comments: Normal LEFT LOWER EXTREMITY: Ankle-brachial pressure index: 1.21 Comments: Normal IMPRESSION: No evidence of significant obstructive peripheral vascular disease of the lower extremities Reviewed, Interpreted and Dictated by Zulay Villeda MD Transcribed by Dayanara Rader Authenticated and . [facility]
--- NOTE | 2025-07-10 11:38 | XR_ITS ---
FINAL REPORT CLINICAL HISTORY: Right foot pain/ unknown injury/ Rule out Fracture COMPARISON: 03/30/2025 FINDINGS: RIGHT FOOT 3 views of the right foot were obtained. There is no acute fracture or dislocation. There are postoperative changes to the distal fifth metatarsal. Cortical irregularity is seen along the distal margin of the fifth metatarsal which could represent osteomyelitis. There is cortical thickening at the more proximal fifth metatarsal shaft. An ulcer is seen along the posterolateral forefoot with soft tissue edema. There is stable multijoint degenerative disease. IMPRESSION: Possible osteomyelitis at the distal fifth metatarsal with overlying ulceration and cellulitis. Consider MRI if clinically indicated. Reviewed, Interpreted and Dictated by Zulay Villeda MD Transcribed by Simi Irvin Authenticated and . [facility]
== END 2025-07-10 23:59 | disposition home or self-care (01) ==
LOC: RT 11:11
PROVIDERS: PCP Internal Medicine Adolescent Medicine; Visit Provider Podiatrist
DX: R93.6 Abnormal findings on diagnostic imaging of limbs (principal); M79.671 Pain in right foot; R09.89 Other specified symptoms and signs involving the circulatory and respiratory systems; L97.519 Non-pressure chronic ulcer of other part of right foot with unspecified severity
CPT/HCPCS: 73630; 93923

== ENCOUNTER 2025-07-13 08:44 | Outpatient (CLI) | payer OTHER, SELFPAY ==
--- NOTE | 2025-07-13 09:15 | MR_ITS ---
FINAL REPORT TECHNIQUE: Multiplanar and multisequence imaging of the right foot was obtained without contrast. CLINICAL HISTORY: r/o 5th met fracture vs Osteomyelitis PLANTAR SURFACE WOUND ON LATERAL SIDE [id number]. PUT MARKER ON WOUND COMPARISON: None FINDINGS: There is bone marrow edema within the 5th metatarsal with corresponding decreased signal intensity on T1 weighted imaging consistent with osteomyelitis. There is also bone marrow edema within the navicular without decreased signal intensity on T1 weighted imaging. There is T1 and T2 signal abnormality with cortical thickening of the 4th metatarsal and marrow edema in the cuboid. Nonspecific soft tissue edema is worse along the lateral forefoot. There is a soft tissue defect along the plantar midfoot at the base of the 5th metatarsal. Foci of susceptibility artifact on T1 weighted imaging along the lateral forefoot is most consistent with subcutaneous air. No loculated fluid collection identified. IMPRESSION: Findings concerning for osteomyelitis of the 4th and 5th metatarsals. Edema in the cuboid and navicular favored to be reactive. Cellulitis without abscess but likely subcutaneous air concerning for gangrene. Reviewed, Interpreted and Dictated by Zulay Villeda MD Transcribed by Jaye Chaidez Authenticated and [facility]
== END 2025-07-13 23:59 | disposition home or self-care (01) ==
LOC: RAD 08:44
PROVIDERS: PCP Internal Medicine Adolescent Medicine; Visit Provider Podiatrist
DX: L03.115 Cellulitis of right lower limb (principal); E11.621 Type 2 diabetes mellitus with foot ulcer; L97.519 Non-pressure chronic ulcer of other part of right foot with unspecified severity; M79.671 Pain in right foot; R93.6 Abnormal findings on diagnostic imaging of limbs; R60.0 Localized edema; Z87.81 Personal history of (healed) traumatic fracture
CPT/HCPCS: 73718

== ENCOUNTER 2025-07-17 09:40 | Outpatient (CLI) | payer OTHER, SELFPAY ==
--- NOTE | 2025-07-17 11:23 | ECG_ITS ---
APPROVED REPORT Exam: Resting ECG HR:55 bpm ECG Measurements Heart Rate 55 AXES DC 167 P 19 QRSd 95 QRS 15 QT 433 T 7 QTc 421 Conclusion SINUS BRADYCARDIA BORDERLINE ECG UNCONFIRMED REPORT Electronically signed by : Ryan Callahan MD 07/17/2025 15:54:25
== END 2025-07-17 23:59 | disposition home or self-care (01) ==
LOC: RT 09:41
PROVIDERS: PCP Internal Medicine Adolescent Medicine; Visit Provider Podiatrist
DX: Z01.810 Encounter for preprocedural cardiovascular examination (principal); I49.8 Other specified cardiac arrhythmias; R00.1 Bradycardia, unspecified; R94.31 Abnormal electrocardiogram [ECG] [EKG]; R06.02 Shortness of breath
CPT/HCPCS: 93005

== ENCOUNTER 2025-07-18 07:45 | Day surgery (SDC) | payer OTHER, SELFPAY ==
[2025-07-17 13:53] VITALS: BMI 30.4
[2025-07-18] VITALS (10 sets, daily range): BP systolic 120–176; BP diastolic 69–100; PULSE 61–74; RESP 16–18; TEMP 36.1–36.6; O2SAT 94–98
[2025-07-18 08:18] LABS: POC Glucose,Bedside 119 gm/dL (70-110)
[2025-07-18] MEDS: 0.9 % SODIUM CHLORIDE 1000ML 1,000 ML 25 ML IV (08:26)
--- NOTE | 2025-07-18 09:29 | EXP.OP.NOTE ---
Date of procedure: 07/18/25 Pre-op Diagnosis:: Right DFU Right foot 5th metatarsal OM Bone marrow edema: 4th met, cuboid, navicular Suspected 5th metatarsal stress fracture Suspected right foot Charcot Right foot hx of abscess Right foot hx of surgery Post-op Diagnosis:: Same Procedure performed:: Right foot incision bone cortex for osteomyelitis (80009) with open bone biopsy (5th metatarsal-) Partial excision right 5th metatarsal (22851) Incision and drainage below foot fascia single bursal space (21089) Wide excisional debridement wound/ulcer debridement (48313) Ulcer excision with delayed primary closure Adjacent soft tissue rearrangement (derotational skin flap) Open bone biopsy (4th metatarsal-) Application of antibiotic beads Surgeon:: Louann Dasilva DPM Anesthesia: GETA and local (20cc 0.5% marcaine plain) Estimated blood loss (mL): 30 Clinical Note:: Pre-op Indications: Patient is a 34-year-old diabetic male who presents with a neuropathic ulcer to the right sub fifth metatarsal. Patient has had the ulcer for >11 months. He has had cellulitis, osteomyelitis resolved with oral/IM antibiotics, surgical resection on 03/14/25. The initial right foot DFU and surgical site healed. But unfortunately patient developed a new diabetic foot ulcer, which is failing conservative care. Patient has been received local wound care with weekly wound debridements but little improvement to DFU site. Recent x-rays suspicious for non-displaced fifth met fracture. Recent MRI 07/13/25 shows bone marrow edema to navicualr, cuboid, 4th met concerning for Charcot midfoot changes, thickening of 4th met and cortical changes to the fifth metatarsal suspicious for osteomyelitis. Patient has had conservative care including: (non-compliance) offloading with Darco APB with peg assist inserts immobilization, U pads/metatarsal pads, weekly wound debridements, labs, wound culture, oral antibiotics as needed. Discussed ulcer likely secondary to pressure point due to his pes cavus foot type. Also discussed possibility of abscess or deep infection like osteomyelitis which would cause the wound to continue to reulcerate and not heal. We discussed conservative versus surgical treatment options. We discussed surgical incision and drainage, wide excisional wound debridement with partial closure, partial met resection to remove 5th met prominence, and obtain bone biopsy. Recommend strict NWB in fx boot with crutches/RKS post-op for at least 3-6 weeks. Patient understands that they could have wound healing complications including delayed healing and infection. We discussed that if the wound does not heal, it is possible that he may need further debridement or amputation. Discussed complications of fifth metatarsal resection and loss of peroneus brevis insertion which can cause further foot deformity and loss of peroneal eversion. Discussed complications of surgery including increase in bone marrow edema/inflammation, Charcot changes. Discussed untreated Charcot could lead to midfoot breakdown, new/worsening ulcerations, foot deformity and the need for partial foot versus below-knee amputation. Patient understands if infection spreads further into the bone, it may warrant proximal amputation and could result in further loss of digits, loss of partial foot or loss of leg. I discussed the risks and benefits in great detail with both patient and his Vianney. Other surgical risks include: prolonged/permanent pain and swelling, further bone or soft tissue infection requiring oral or IV antibiotics, delay in healing of soft tissue or bone, nerve or blood vessel damage, CRPS/RSD, DVT/PE, anesthesia complications, and even . Discussed possible referral to Infectious Disease depending on bone biopsy results. All questions answered. Patient verbalized understanding. Verbal and written consent obtained. Clinic Pharmacy meds to bed: Levo, Zyvox and Seaboard. Operative findings:: Right foot prior surgical/incision site healed. A separate linear incision was made on the dorsal aspect of the fourth metatarsal full-thickness down to the level of the fourth metatarsal bone. Bone biopsy to evaluate for 4th met osteomyelitis. Bone appeared hard with normal texture and color. Diabetic ulcer noted to the plantar aspect of the fifth metatarsal. Preop wound base was 100% granular and measured approximately 1.8 x 0.8 x 0.5 cm. No new purulence, malodor or drainage noted. 15 blade and forceps used to sharply excisionally debride wound full-thickness through skin, subcutaneous tissue into/including deep fascia. Because of swelling has significantly decreased from the last office visit, decision made to excise the ulcer and attempt delayed primary closure with rotational skin flap. A separate linear incision was made on the dorsal aspect of the fifth metatarsal full-thickness down to the level of the bone. I&D bone cortex to evaluate for osteomyelitis. No purulence or abscess fluid noted. Sagittal saw used to transect a piece of bone cortex to evaluate for osteomyelitis. There were some changes to the distal fifth metatarsal head prior amp site. The met was soft and appeared a little application engineer yellow?white. This was removed, transected in half and sent for both bone pathology and culture. More proximally there was an area of irregularity which did correlate to the MO view on the plain film x-ray of suspicious fracture. It did not extend through both cortices. At this level the proximal margin bone biopsy specimen was taken. The remaining metatarsal appeared to be hard, normal texture and color. A piece was transected and sent for proximal margin. During 5th met margin saw resection the fourth metatarsal lateral cortex was inadvertently partially transect. The prior abscess infection appears to have been resolved. No sinus tracking appreciated. The ulcer was able to be fully debrided and sent for tissue culture. A hurricane style incision was made on either side of the ulcer both superiorly and inferiorly in order to perform a derotational skin flap/adjacent soft tissue rearrangement to cover the 5 x 3 cm defect left from excising the wound. Skin edges were able to be reapproximated. Prognosis: fair. He has been non-compliant in the past. The soft tissue and remaining bone appeared viable. As long as the patient stays strict nonweightbearing, takes antibiotics, does appropriate dressing changes as directed and follows up he has a fair prognosis for recovery and limb salvage. Operative note:: On this date and time patient was deemed an appropriate surgical candidate. With informed consent signed, the patient was taken to the operating theater. The patient was positioned supine on OR table. General anesthesia was induced. Tourniquet applied to mid calf at 225 mmHg. IV Vancomycin, Cefepime infused. The right lower extremity was prepped and drapped in normal sterile fashion. 0.5% marcaine given in ankle, foot block. Right 4th metatarsal open bone biopsy: A dorsal linear incision was made on the 4th metatarsal full-thickness down to the level of the fourth metatarsal bone. Bone biopsy to evaluate for 4th met osteomyelitis. Jamshidi needle utilized to remove a piece of the fourth metatarsal distally. No obvious purulence or signs of infection noted. Right fifth metatarsal resection, open bone biopsy: Attention was directed to the dorsal aspect of the fifth metatarsal where a linear incision was made full-thickness down to the level of the bone with a 15 blade. No rodrigo purulence expressed. Incision made within the metatarsal shaft to evaluate for osteomyelitis. There were some cortical erosions and color changes to the distal metatarsal. Sagittal saw utilized to transect metatarsal shaft and a piece was sent for culture and for pathology. Infection appeared to be localized distal to this area. Saw was then used to transect a piece of the fifth metatarsal for proximal margin. Attention was then directed to known previously infected site plantarly. Right foot I&D (incision and drainage): Attention was directed to the plantar aspect of the foot where DFU was noted. An incision was made on either side of the DFU with a 15 blade full-thickness through skin, subcutaneous into/including deep fascia tissue approximately 2.5 cm deep. No purulence or malodor noted. No areas abscess appreciated. Deep wound culture taken of this area. Right foot irrigation and wide excisional debridement: Attention was directed to the plantar foot where the diabetic foot ulcer noted. Ulcer was excised in an HurriCaine style full-thickness into deep fascia with a 15 blade. The ulcer tissue was sent to culture. All nonviable soft tissue was sharply excisionally debrided. Wound was flushed with gentamicin irrigation and a pulse lavage. Post debridement defect a 5 x 3 x 3 cm. Healthy bleeding skin edges. The wound was reexplored and no further signs of infection noted. No sinus tracking. Bleeding controlled. Vessels ligated with electrocautery as needed. Application of antibiotic beads: [employer] G was utilized to make antibiotic beads which were inserted after the wound was right was explored and flushed with gentamicin irrigation. Rotational flap skin closure: Attention was directed back to the plantar foot. The skin edges could not be directly repaired due to the defect. The incision ends had been extended and rotated dorsal lateral to plantar medial close over the soft tissue defect where the ulcer had been excised. Subcutaneous tissue had been repaired with the Vicryl. Antibiotic beads inserted. The skin flap was repaired with Nylon. Skin was closed with no defect remaining. Centrally at the apex of the plantar incision the skin was not tight. Successful rotational flap covering the 5 x 3 cm defect. The skin was cleansed. Tourniquet deflated and immediate hyperemic response was noted to the digits. The flap site did have normal color and no signs of blanching or early necrosis. Betadine soaked 4x4's followed by dry sterile dressing applied to the foot. A right modified Gillette posterior U-splint was then applied below the knee. The patient tolerated the procedure and anesthesia well, without complications. The patient was awoken from anesthesia and transferred to recovery with vital signs stable and neurovascular status intact. Materials: [employer] G (drug delivery system with gentamicin), 1g Vanco powder, Nylon Plan: Patient is to maintain dressing clean dry and intact. Strict non weight bearing to the right foot in a posterior U-splint with crutches/rolling knee scooter. Obtain post op films, right foot, 3 views. Take oral antibiotics: Levaquin, linezolid as directed. Seaboard, Motrin as needed for pain. Plan for dressing change and skin check on Wednesday. Tourniquet time (min): 40 Condition: stable Disposition: same day Specimens:: Micro: Right foot deep wound culture, ulcer tissue culture, 4th metatarsal bone, right 5th metatarsal bone Path: Right 4th metatarsal bone, 5th metatarsal bone, 5th metatarsal proximal margin Complications:: None
--- NOTE | 2025-07-18 09:33 | EXP.ANES.CKL ---
[facility] Disclaimer: The information contained in this section may have been updated after the patient was seen, as this information can be updated by other users. Medical History Right foot pain Diverticulitis Diabetes mellitus with foot ulcer Essential hypertension Type 2 diabetes mellitus Surgical History History of ankle surgery Family History Other Family history of cancer Family history of diabetes mellitus Family history of myocardial infarction Social History Smoking Status: Never smoker alcohol intake: never substance use type: denies use current occupational status: employed Travel in the last 8 weeks?: None Have you lived/traveled outside [place] in past 30 days?: No Contact w/someone who lives/traveled outside US past 30 days?: No Exposure to someone with infectious disease in past 14 days?: No Do you have a fever (greater than 100.4 F or 38 C)?: No Have you tested positive for COVID-19?: Yes Exposed to someone with COVID-19 in past 14 days?: No Do you have a sore throat?: No Do you have a cough?: No Do you have any weakness?: No Are you experiencing any nausea/vomitting?: No Do you have any diarrhea?: No Are you experiencing any unusual bleeding?: No Do you have any muscle aches/pain?: No Do you have any abdominal pain?: No Are you experiencing loss of taste or smell?: No [facility] Anesthesia Checklist Patient Identification Patient Identification: Arm Band Structural Data Admitted From: Home Planned Operative Procedure/s: Right Foot Bone Biopsy, I&D Consent for Planned Operative Procedure(s) Verified: Yes Verified Documents: Surgical Consent and History and Physical NPO Status Verified Time NPO: 00:00 Additional verifications Anesthesia Reactions: No Hx Blood Transfusions: No Blood Transfusion Reaction: No Airway Assessment Mallampati Score:: Class II C-Spine Mobility Assessed: Yes TMJ Mobility Assessed: Yes Dentition: Good Dentition Neurological Assessment Level of Consciousness: Awake, Alert and Appropriate Anesthesia Plan Anesthesia Risk discussed: Yes Anesthesia Plan: Verified ASA Class: II Anesthesia Type: General
[2025-07-18] MEDS: CEFEPIME HCL 2 GM in 0.9 % SODIUM CHLORIDE 100 ML IV (09:35)
[2025-07-18] MEDS: GENTAMICIN 80 MG/2 ML VIAL (10:07)
[2025-07-18] MEDS: BUPIVACAINE 0.5% 30ML VIAL 150 MG (10:07)
[2025-07-18] MEDS: VANCOMYCIN HCL 2,250 MG in 0.9 % SODIUM CHLORIDE 250 ML 125 MG IV (10:13)
[2025-07-18] MEDS: VANCOMYCIN 1000MG VIAL 1000 MG (11:10)
--- NOTE | 2025-07-18 11:15 | XR_ITS ---
FINAL REPORT CLINICAL HISTORY: Postop 5th met resection, 4th met bone biopsy COMPARISON: 07/10/2025 FINDINGS: AP, oblique and lateral views of the right foot were obtained. The cast now present overlying the right foot obscures detail. There has been interval amputation of the distal fifth metatarsal with antibiotic beads in the resected cavity. There is stable degenerative joint disease present. Otherwise, no interval change since the prior exam of 07/10/2025. IMPRESSION: Interval amputation of the distal fifth metatarsal with antibiotic beads in the resected cavity. Otherwise no interval changes identified. Reviewed, Interpreted and Dictated by Zulay Villeda MD Transcribed by Dayanara Rader Authenticated and [facility]
--- NOTE | 2025-07-18 11:31 | P.PNANES_ITS ---
[facility] Anesthesia Record Part I Anesthesia Record I Intake, IV Amount: 1,500 Hydration: Adequate Estimated blood loss (mL): 0 Urine output (mL): 0 Blood Pressure: 176/100 SaO2: 95 Pulse Rate: 74 Airway Patency: Patent Respiratory Rate: 16 Temperature: 97.8 F Patient is:: Awake and Stable Stable to PACU at:: 11:30
[2025-07-18 11:47] LABS: POC Glucose,Bedside 127 gm/dL (70-110)
--- NOTE | 2025-07-18 16:36 | EXP.ANES.II ---
[facility] Anesthesia Record Part II Anesthesia Record Part II Discharge Time: 12:32 Destination: Surgical Day Care (OP Surgery) PACU nurse assessment reviewed?: Yes Patient Condition:: Good Anesthesia Complications:: None Swallowing reflex intact?: Yes Airway Patency: Patent Cyanosis?: No Blood Pressure: 127/70 SaO2: 94 Respiratory Rate: 18 Pulse Rate: 61 Temperature: 97.0 F Mental Status: Alert & Oriented Pain level:: 0 Nausea and/or vomitting:: None Intake, IV Amount: 0 Hydration: Adequate
== END 2025-07-18 13:00 | disposition home or self-care (01) ==
PROVIDERS: PCP Internal Medicine Adolescent Medicine; Visit Provider Podiatrist
PROC: (CPT 14041; principal; 2025-07-18 09:15)
DX: E11.621 Type 2 diabetes mellitus with foot ulcer (principal); L97.512 Non-pressure chronic ulcer of other part of right foot with fat layer exposed; R93.6 Abnormal findings on diagnostic imaging of limbs; I10 Essential (primary) hypertension; E11.40 Type 2 diabetes mellitus with diabetic neuropathy, unspecified; Z79.84 Long term (current) use of oral hypoglycemic drugs; M21.6X1 Other acquired deformities of right foot; M21.6X2 Other acquired deformities of left foot; Z86.14 Personal history of Methicillin resistant Staphylococcus aureus infection; E66.811 Obesity, class 1; Z68.30 Body mass index [BMI] 30.0-30.9, adult; Z91.199 Patient's noncompliance with other medical treatment and regimen due to unspecified reason; L84 Corns and callosities; Z96.9 Presence of functional implant, unspecified; Z79.899 Other long term (current) drug therapy
CPT/HCPCS: 14041; 20220; 28002; 28122; 73630; 82962; 87070; 87077; 87186; 87205; 88304; C1602; J0665; J0692; J1100; J1580; J1885; J2003; J2250; J2405; J2704; J3010; J3373; J7030; J7050

== ENCOUNTER 2025-08-08 00:55 | Emergency (ER) | payer OTHER, SELFPAY ==
[2025-08-08 00:57] VITALS: BP 133/80; PULSE 113; RESP 21; TEMP 37.2; O2SAT 95; BMI 32.3
--- OUTSIDE RECORDS SUMMARY | 2025-08-08 01:01 | XMS_ITS | Continuity of Care Document ---
Author Organization [facility] Infectious Disease -105 Address [address] [place] [address] Care Team Providers Care Line Closer Name Role Phone YSABELSUE ELLSWORTH Primary Care Provider ALMA MUNOZ Chemical Engraver Assessment No assessment recorded. Plan of Treatment Reminders Order Date Submit Date Provider Last Modified By Organization Details Last Modified Time Details Appointments Establish ed Visit 15 min 2024 09:45A Gio Gary MD Not available Not available Not available Lab C-reactiv e protein, quantitat lila, serum or plasma [address] [facility], [address], [place], [address], 08/06/2025 10:01:05 ESR (erythroc yte sedimenta tion rate), blood [address] [facility], [address], [place], [address], 08/06/2025 10:01:05 BMP, serum or plasma [address] [facility], [address], [place], [address], 08/06/2025 10:01:05 CBC [address] [facility], [address], [place], [address], 08/06/2025 10:01:05 Referral None recorded. Procedures None recorded. Surgeries None recorded. Imaging None recorded. Medication Orders Bactrim DS 800 mg-160 mg tablet 2024 [facility], [address] [place] [address], [id number], 2025 12:15:42 Patient TargetsNo targets recorded. Patient InstructionsNo instructions recorded. Reason for Referral None Reported. Problems Name Problem SNOMED Code Status Onset Date Resolution Date Notes Provider Name and Address Organization Details Recorded Time Ulcer of right foot due to diabetes mellitus 259340383 Active Shayna Morales [facility] & [place] 16:21:05 Problem Notes None recorded. Medical Equipment None Reported. Allergies No known drug allergies Medications Name Sig Start Date Stop Date Status Note LastModified by Organization Details LastModified Time metformin 500 mg tablet TAKE ONE TABLET BY MOUTH EVERY DAY active Not Available Not Available No t Available doxycycline hyclate 100 mg capsule TAKE ONE CAPSULE BY MOUTH TWICE DAILY FOR celluliti s FOR 2 WEEKS -- FINISH ALL MEDICINE -- 08/02 completed Not Available Not Available Not Available clindamycin HCl 300 mg capsule TAKE ONE CAPSULE BY MOUTH THREE TIMES DAILY FOR CELLULITI S FOR 10 DAYS -- FINISH ALL MEDICINE -- 08/02 completed Not Available Not Available Not Available ibuprofen 800 mg tablet TAKE ONE TABLET BY MOUTH TWICE DAILY NEEDED FOR moderate pain --TAKE WITH FOOD-- DO NOT TAKE WITH KETOROLAC active Not Available Not Available No t Available ampicillin 500 mg capsule TAKE ONE CAPSULE BY MOUTH EVERY 6 HOURS FOR infection FOR 10 DAYS START ON 03/15/2508/02 completed Not Available Not Available Not Available hydrocodone 5 mg-acetamin ophen 325 mg tablet TAKE ONE TABLET BY MOUTH EVERY 6 HOURS NEEDED FOR PAIN MAY CAUSE DROWSINES S active Not Available Not Available No t Available ketorolac 10 mg tablet TAKE ONE TABLET BY MOUTH EVERY 6 HOURS NEEDED FOR MODERATE PAIN FOR 5 DAYS MAX DURATION OF 5 DAYS from ALL oral, intranasa l, OR parentera l formulati ons active Not Available Not Available No t Available linezolid 600 mg tablet TAKE ONE TABLET BY MOUTH TWICE DAILY FOR 10 DAYS FOR infection -- FINISH ALL MEDICINE -- 08/02 completed Not Available Not Available Not Available losartan 25 mg tablet TAKE ONE TABLET BY MOUTH EVERY DAY active Not Available Not Available No t Available mupirocin 2 % topical ointment APPLY TOPICALLY TO THE AFFECTED AREA(S) TWICE DAILY active Not Available Not Available No t Available levofloxaci n 500 mg tablet TAKE ONE TABLET BY MOUTH ONCE DAILY FOR 10 DAYS -- FINISH ALL MEDICINE -- 08/02 completed Not Available Not Available Not Available levofloxaci n 750 mg tablet TAKE ONE TABLET BY MOUTH EVERY DAY FOR celluliti s FOR FOURTEEN DAYS -- FINISH ALL MEDICINE -- 08/02 completed Not Available Not Available Not Available ondansetron 4 mg disintegrat ing tablet DISSOLVE ONE TABLET BY MOUTH EVERY 6 HOURS FOR NAUSEA AND VOMITING active Not Available Not Available No t Available gentamicin 0.1 % topical ointment APPLY TOPICALLY TO THE AFFECTED AREA(S) TWICE DAILY FOR 3 WEEKS FOR celluliti s active Not Available Not Available No t Available Bactrim DS 800 mg-160 mg tablet Two tablets by mouth twice per day 2024 active Not Available Not Available Not Avai lable Suprep Bowel Prep Kit 17.5 gram-3.13 gram-1.6 gram oral solution Take 6 ounces twice a day by oral route as directed for 1 day, for colonosco py prep. 2023 active Not Available Not Available Not Avai lable Farxiga 10 mg tablet TAKE ONE TABLET BY MOUTH ONCE DAILY active Not Available Not Available No t Available Vitals Date Recorded Heart rate Body height Oxygen saturation Oxygen saturation in Arterial blood by Pulse oximetry Body temperature Body mass index (BMI) Body weight Systolic And Diastolic Provider Name and Address Organization Details Last Updated DateTime 5 65 /min 200.66 cm 98 % 98 % 97.2 [degF] 32.7 kg/m2 568400. 79 g 124/80 mm[Hg] Shayna Morales [place] - [facility] - [place] & [place] 5 09:27:16 Social History None recorded. Functional Status None recorded. Mental Status None recorded. Family History Nothing Reported. Medical History No medical history recorded. 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 The patient is status post a partial right 5th metatarsal resection. 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 There was also a Micrococcu s species identified , but this is a contaminan t. He has been on 3 weeks of levofloxac in, which is permissibl e. However, I am going to switch him to high-dose Bactrim DS now. I think this will be the best antibiotic going forward and will cover both organisms. I am going to check basic laboratory work and inflammato ry markers today. While everything is stable currently, this is clearly a potentiall y limb threatenin g illness. I will tentativel y plan 2-3 additional weeks of Bactrim DS 2 tabs p.o. b.i.d, and monitor him closely. He will follow up with me in 1 week. 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 Taking hig h risk medication [id number] 43501 Z79.444 6024977 He will be on 2-3 additional weeks of high-dose Bactrim DS. I want to check his kidney function and potassium levels today. I will continue to monitor these parameters closely as well as his blood counts. Health Concerns Section Related Observation LastModified by Organization Detai ls LastModified Time None Recorded Concern Status LastModified by Organization Details LastModified Time None Recorded Payers Encounter Date Sequence Insurance Name Policy Number Policy Puente Covered Member ID Puente Member ID Guarantor Name 08/06/2025 1 [employer] [facility] (MEDICAID HMO) Wade Jasso Perraut [id number] Wade Acosta Notes Date Note Type Note Provider Name and Address Organization Details Recorded Time 08/06/2025 text/html ROS as noted in the HPI This is a 34-year-old white male with diabetes mellitus and Charcot's arthropathy. Apparently, he has been battling a right foot infection for some time. He is referred to me for this issue. Apparently, he had a callus on the undersurface of his right foot began over a year ago. He had some type of debridement for this and improved. He later fractured his foot and developed persistent complications after the fracture and developed another nonhealing wound over the outside of his right foot. About 3 weeks ago, he underwent some type of debridement again with bone cultures. 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 This is the reason he is referred here. He states he is on 2 antibiotics right now. He has been on for about 3 weeks. He states that all wounds about his right foot or heel. He still has sutures in place. He denies fever. No intolerance of the antibiotics. He preferred that I not remove his dressings today. Noble Gary MD [address], [place], [address], [facility] - [place] & [place] 08/06/2025 09:57:58
--- OUTSIDE RECORDS SUMMARY | 2025-08-08 01:01 | XMS_ITS | Data Portability ---
Author Organization [place] - [facility] & [place] TIFFANIE ADMIN Address [address] [place] [id number] Care Team Providers Care Fpga Design Engineer Name Role Phone SUE JOSEPH Primary Care Provider ALMA MUNOZ Percussion Tuner Assessment No assessment recorded. Plan of Treatment Reminders Order Date Submit Date Provider Last Modified By Organization Details Last Modified Time Details Appointments Establish ed Visit 15 min 2024 09:45A Gio Gary MD Not available Not available Not available Lab C-reactiv e protein, quantitat lila, serum or plasma [address] [facility], [address] , [place], [address], 08/06/2025 10:01:05 ESR (erythroc yte sedimenta tion rate), blood [address] [facility], [address] , [place], [address], 08/06/2025 10:01:05 BMP, serum or plasma [address] [facility], [address] , [place], [address], 08/06/2025 10:01:05 CBC [address] [facility], [address] [place], [address], 08/06/2025 10:01:05 Referral None recorded. Procedures None recorded. Surgeries None recorded. Imaging None recorded. Medication Orders Bactrim DS 800 mg-160 mg tablet 2024 025 [facility], [address] [place] [address] [facility] [address], [id number], 2025 12:15:42 Patient TargetsNo targets recorded. Patient InstructionsNo instructions recorded. Reason for Referral None Reported. Problems Name Problem SNOMED Code Status Onset Date Resolution Date Notes Provider Name and Address Organization Details Recorded Time Ulcer of right foot due to diabetes mellitus 775520296 Active 025 Shayna Morales [facility] & [place] 16:21:05 Problem Notes None recorded. Medical Equipment [...] % 98 % 97.2 [degF] 32.7 kg/m2 049316. 79 g 124/80 mm[Hg] Shayna Morales [facility] - [place] & [place] 5 09:27:16 Social History None recorded. Functional Status None recorded. Mental Status None recorded. Family History Nothing Reported. Medical History No medical history recorded. 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 Infection caused by Acinetobacter 677038931 A49.[id number] haemolytic us as above. Taking hig h risk medication [id number] 87896 Z79.752 9837497 He will be on 2-3 additional weeks of high-dose Bactrim DS. I want to check his kidney function and potassium levels today. I will continue to monitor these parameters closely as well as his blood counts. Health Concerns Section Related Observation LastModified by Organization Detai ls LastModified Time None Recorded Concern Status LastModified by Organization Details LastModified Time None Recorded Advance Directives Directive None Recorded Payers Insurance Date Sequence Insurance Name Policy Number Policy Puente Covered Member ID Puente Member ID Guarantor Name 08/04/2025 1 [employer] [facility] (MEDICAID HMO) Wade Jasso Perraut [id number] Wade Jasso Perraut 08/02/2025 1 [facility] [id number] Wade Acosta [id number] Wade Acosta Notes Date Note Type Note [...] remove his dressings today. Noble Gary MD [address], [place], [address], [facility] - [place] & [place] 08/06/2025 09:57:58
--- NOTE | 2025-08-08 01:09 | ECG_ITS ---
APPROVED REPORT Exam: Resting ECG HR:110 bpm ECG Measurements Heart Rate 110 AXES MS 160 P 37 QRSd 91 QRS 1 QT 324 T 34 QTc 389 Conclusion SINUS TACHYCARDIA ABNORMAL RHYTHM ECG UNCONFIRMED REPORT Electronically signed by : CLAIRE REYES, 08/12/2025 02:14:59
[2025-08-08 01:15] LABS: Coronavirus 19, PCR Not Detected (NotDetected); Influenza A, PCR Not Detected (NotDetected); Influenza B, PCR Not Detected (NotDetected)
--- NOTE | 2025-08-08 01:19 | HMH.EDGENADL ---
Discharge Plan Disposition Patient Disposition: Home, Self-Care Prescriptions Prescriptions: No Action losartan 25 mg tablet 25 mg PO DAILY metformin 500 mg tablet 500 mg PO DAILY Patient Comments: TAKE ONE TABLET BY MOUTH EVERY DAY dapagliflozin propanediol [Farxiga] 10 mg tablet 10 mg PO DAILY ibuprofen [IBU] 800 mg tablet 800 mg PO BIDP PRN (Reason: Moderate Pain) 30 Days Qty: 60 1RF Referrals Follow up/Referrals: Ryan Callahan MD [Primary Care Provider, Internal Medicine] - See instructions Activity Restrictions/Add. Instructions Additional Instructions/Restrictions: Please follow-up with your primary care provider. Please return to the emergency department if you develop any new or worsening symptoms or become concerned for your health. Clinical Impressions Clinical Impression: Micturition syncope, Flu-like symptoms Print Language Print Language: Belarusian Discharge ED Provider: Jeferson Shanks General Adult HPI General Chief complaint: Weakness Stated complaint: body aches, chills, passed out, disoriented Time Seen by Provider: 08/08/25 00:55 Mode of Arrival: Wheelchair Source of Information: Patient Description of Symptoms (Recalled from ER Triage Doc. by RN): pt presents to the ed for evaluation of generalized body aches, chest pressure, and chills that began earlier today. Symtpoms maintained well with motrin at home, during the night patient getting up to use bathroom and had a syncopal episode resulting in lip laceration and pain to right eye. Pt reports recent surgery on diabetic ulcer that is well healing per the surgeon earlier today. History of Present Illness HPI narrative: 35-year-old male with history of type 2 diabetes, chronic right foot wound presents for flulike illness. He reports that he has been having muscle aches, chills, intermittent nausea at home throughout the day and has been worsening. He got up quickly to go pee, peed and felt woozy and passed out, hitting his face on the way down. He denies any current headache, nausea vomiting or vision changes. Regarding his foot, he has been dealing with a diabetic foot wound for months. He was seen today and had it rewrapped and placed back in a cast. He was told it looked good at that time. He is also seeing infectious disease and they started him on Bactrim today. He denies any fever at home. He feels like his symptoms started after he took his first dose of Bactrim. He has no known history of allergic reaction. Related Data Home Medications ?Medication ?Instructions ?Recorded ?Confirmed losartan 25 mg tablet 25 mg PO DAILY 10/25/24 08/07/25 metformin 500 mg tablet 500 mg PO DAILY 11/13/24 08/07/25 dapagliflozin propanediol 10 mg 10 mg PO DAILY 04/09/25 08/07/25 tablet (Farxiga) Previous Rx's ?Medication ?Instructions ?Recorded ibuprofen 800 mg tablet (IBU) 800 mg PO BIDP PRN Moderate Pain 03/14/25 30 days #60 tabs Allergies Allergy/AdvReac Type Severity Reaction Status Date / Time No Known Allergies Allergy Verified 08/07/25 11:17 [facility] Disclaimer: The information contained in this section may have been updated after the patient was seen, as this information can be updated by other users. Medical History Right foot pain Diverticulitis Diabetes mellitus with foot ulcer Essential hypertension Type 2 diabetes mellitus Surgical History History of ankle surgery Family History Other Family history of cancer Family history of diabetes mellitus Family history of myocardial infarction Social History Smoking Status: Never smoker alcohol intake: never substance use type: denies use current occupational status: employed Travel in the last 8 weeks?: None Have you lived/traveled outside US in past 30 days?: No Contact w/someone who lives/traveled outside US past 30 days?: No Exposure to someone with infectious disease in past 14 days?: No Do you have a fever (greater than 100.4 F or 38 C)?: No Have you tested positive for COVID-19?: No Exposed to someone with COVID-19 in past 14 days?: No Do you have a sore throat?: No Do you have a cough?: No Do you have any weakness?: No Do you have any diarrhea?: No Are you experiencing any unusual bleeding?: No Do you have any muscle aches/pain?: Yes Do you have any abdominal pain?: No Are you experiencing loss of taste or smell?: No Other Medical History Have you received the Pneumonia Vaccine: No ROS Obtained: Yes All systems reviewed & no additional complaints except as documented Physical Exam General General appearance: alert and in no apparent distress Head Head exam: atraumatic and normocephalic Eye Eye exam: Present normal appearance, PERRL and EOMI ENT ENT exam: Present normal oropharynx and normal external ear exam Neck Neck exam: Present normal inspection and full ROM Chest Chest inspection: Present normal inspection and symmetric chest wall rise; Absent tenderness Respiratory Respiratory exam: Present normal lung sounds bilaterally; Absent respiratory distress Cardiovascular Cardiovascular exam: Present regular rate and normal rhythm Abdominal Exam Abdominal exam: Present soft; Absent distention, tenderness or guarding Extremities Exam Extremities exam: Present normal inspection; Absent edema or joint swelling Back Exam Back exam: Present normal inspection; Absent tenderness Neurological Exam Neurological exam: Present alert and oriented X3; Absent motor sensory deficit Psychiatric Psychiatric exam: Present normal affect and normal mood Skin Skin exam: Present warm, dry and normal color Lymphatic Lymphatic Findings: no adenopathy Medical Decision Making Medical Records Medical records reviewed: Yes I reviewed the patient's medical records. Screening: Per USPSTF and CDC recommendations, given the prevalence of disease in our region, it is our hospital?s policy to screen for HIV and viral Hepatitis for all patients aged 18 and over and those with ongoing risk factors. Maikel Inquiry Pt receiving controlled substance: No Maikel was queried for this patient: No Vital Signs: 08/08/25 00:57 08/08/25 02:00 08/08/25 02:29 Temperature 99 F 99 F Temperature Source Oral Oral Pulse Rate 98 H 98 H Pulse Rate [Radial] 113 H Respiratory Rate 21 24 24 Blood Pressure 132/74 132/74 Blood Pressure [Right Arm] 133/80 Blood Pressure Mean [Right Arm] 97 Blood Pressure Position Sitting Blood Pressure Position [Right Arm] Sitting 02 Sat by Pulse Oximetry 95 95 Oxygen Delivery Method Room Air Room Air Lab Data Lab results reviewed: Yes I reviewed the patient's lab results. Lab Results 08/08/25 01:00: WBC 15.8 H, RBC 5.42, Hgb 17.1, Hct 46.5, MCV 85.8, MCH 31.5 H, MCHC 36.8 H, RDW 12.5, Plt Count 197, MPV 9.9, Neut % (Auto) 92.5 H, Lymph % (Auto) 2.8 L, Dade % (Auto) 3.3, Eos % (Auto) 1.0, Baso % (Auto) 0.1, Neut # (Auto) 14.6 H, Lymph # (Auto) 0.4 L, Dade # (Auto) 0.5, Eos # (Auto) 0.2, Baso # (Auto) 0.0, Total Counted 100, Neutrophils % (Manual) 88 H, Band Neutrophils % 2, Lymphocytes % (Manual) 4 L, Monocytes % (Manual) 6, Sodium 136, Potassium 3.9, Chloride 101, Carbon Dioxide 26, Anion Gap 12.9, Glucose 182 H, Calcium 8.8, Magnesium 1.5 L, Total Bilirubin 1.3, AST 34, ALT 32, Alkaline Phosphatase 95, Troponin I < 0.01, Total Protein 7.2, Albumin 4.6, Globulin 2.6, Albumin/Globulin Ratio 1.8, HCV Ab ARIANA w/Rflx PCR Qn Negative 08/08/25 01:11: SARS-CoV-2 (PCR) Not detected, Influenza A Untype (PCR) Not detected, Influenza Type B (PCR) Not detected 08/08/25 01:00 08/08/25 01:00 Orders (Tests/Meds): ED MEDICATIONS Discontinued Medications Generic Name Dose Route Start Last Admin Trade Name Freq PRN Reason Stop Dose Admin Sodium Chloride 1,000 mls @ 999 mls/hr 08/08/25 01:15 08/08/25 02:17 Sod Chlor 0.9% 1000ml Bag IV 08/08/25 02:15 Infused .Q1H1M AMBER Infusion Ondansetron HCl 4 mg 08/08/25 01:07 08/08/25 01:22 Ondansetron 4mg/2ml Vial IV 08/08/25 01:08 4 mg ONCE ONE Administration ORDERS Category Date Time Status CBC w/Auto Diff [Complete Blood Count Auto Diff] Stat Lab 08/08/25 01:00 Completed CMP [Comprehensive Metabolic Panel] Stat Lab 08/08/25 01:00 Results HIV Combo Stat Lab 08/08/25 01:00 Received Hepatitis C Ab Qual. W/ RFX Stat Lab 08/08/25 01:00 Completed Magnesium Stat Lab 08/08/25 01:00 Results Rapid PCR Covid and Flu A/B Stat Lab 08/08/25 01:11 Completed Troponin I Q3H Lab 08/08/25 01:00 Results Blood Culture Stat Micro 08/08/25 01:00 Received Medical Decision Narrative: 35-year-old male with history of type 2 diabetes and chronic right foot infection presents for flulike illness and syncope. History was obtained via interactive discussion with patient, family, chart. On arrival, patient is afebrile, mildly tachycardic, normotensive satting appropriately GCS 15, moving all extremities spontaneously. Full physical exam performed and significant for small laceration to the lower lip, abrasion/hematoma to the right eyebrow, clear lungs bilaterally. Differential includes but is not limited to flu/viral illness, sepsis secondary to foot infection, allergic reaction, dehydration. Patient was given 1 L IV fluid bolus, Tylenol and Zofran for symptomatic management and correction of underlying abnormalities. Workup initiated including CBC CMP blood cultures chest x-ray EKG troponin. On re-evaluation, patient [remains afebrile, HD stable.] Laboratory workup independently interpreted by me and significant for negative initial troponin, negative COVID flu swab, mild leukocytosis with white count of 15, minimal hypomagnesemia, normal glucose,. EKG independently interpreted by me and significant for sinus tachycardia, ventricular rate of 110, no significant ST or T wave changes.. Repeat troponin was considered but given patient has no chest pain or cardiac history I do not think it is required at this time. Low concern for cardiac syncope. CT imaging of the head was considered, but deemed unnecessary due to patient not on blood thinners, no focal deficits, well-appearing on observation. Given patient history, exam and workup, patient's presentation most likely represents micturition syncope and developing viral illness. Given the wound looked good at his surgeons office today and he is on antibiotics already, the likelihood of acute worsening of foot infection seems low and I did not pursue further workup of the foot beyond blood cultures at this time. Patient may be having an allergic reaction to the Bactrim, but his presentation is certainly not consistent with a typical allergic reaction nor with anaphylaxis. On reassessment patient is feeling better and was discharged in stable condition with return precautions. Recommended he follow-up with his ID doctor to make further decisions regarding antibiotic changes. Procedures Risk/Benefits of Procedure(s) Were Explained: Yes Critical Care Critical Care Time Critical Care Time: No
[2025-08-08] MEDS: 0.9 % SODIUM CHLORIDE 1000ML 1,000 ML 999 ML IV (01:21)
[2025-08-08] MEDS: ONDANSETRON 4MG/2ML VIAL 4 MG IV (01:22)
[2025-08-08 01:25] LABS: Hematocrit 46.5 % (42.0-52.0); Hemoglobin 17.1 g/dL (14.1-18.0); Immature Granulocytes % 0.3 %; Mean Corpuscular HGB Conc 36.8 g/dL (31.8-35.4); Mean Corpuscular Hemoglobin 31.5 pg (27.0-31.2); Mean Corpuscular Volume 85.8 fl (80-94); Nucleated Red Blood Cells % 0 %; Platelet Count 197 K/mm3 (142-424); Red Blood Count 5.42 M/mm3 (4.60-6.20); Red Cell Distribution Width-SD 38.5 fL; White Blood Count 15.8 K/mm3 (4.8-10.8)
[2025-08-08 01:46] LABS: Albumin Level 4.6 g/dl (3.5-5.0); Chloride 101 mmol/L (98-107); Potassium 3.9 mmoL/L (3.5-5.1); Sodium 136 mmol/L (136-145)
[2025-08-08 01:48] LABS: Alanine Aminotransferase 32 U/L (12-78); Aspartate Amino Transferase 34 U/L (17-59)
[2025-08-08 01:49] LABS: Albumin/Globulin Ratio 1.8 (1.1-1.8); Alkaline Phosphatase 95 U/L (38-126); Anion Gap 12.9 mEq/L (5-15); Bilirubin,Total 1.3 mg/dl (0.2-1.3); Calcium 8.8 mg/dl (8.4-10.2); Carbon Dioxide 26 mmol/L (22.0-30.0); Globulin 2.6 g/dL (1.3-3.2); Glucose 182 mg/dl (74-100); Magnesium 1.5 mg/dl (1.6-2.3); Total Protein,Serum 7.2 g/dl (6.3-8.2)
[2025-08-08 02:00] VITALS: BP 132/74; PULSE 98; RESP 24; O2SAT 95
[2025-08-08 02:11] LABS: Troponin I < 0.01 ng/ml (0.00-0.034)
[2025-08-08 02:13] LABS: Total Cells Counted 100
[2025-08-08 02:29] VITALS: BP 132/74; PULSE 98; RESP 24; TEMP 37.2; O2SAT 95
[2025-08-08 02:38] LABS: Hepatitis C Ab Qual. W/ RFX NEGATIVE (Negative)
[2025-08-08 02:53] LABS: Blood Urea Nitrogen 19 mg/dl (9-20); Creatinine Clearance Estimated 186 mL/min (50-200); Creatinine,Serum 1.00 mg/dl (0.66-1.25); Estimated Glomerular Filt Rate 84 ml/min (>60); GFR (African American) 102 ML/MIN (>60)
== END 2025-08-08 02:30 | disposition home or self-care (01) ==
LOC: ER 00:58
PROVIDERS: Emergency Provider Emergency Medicine; PCP Internal Medicine Adolescent Medicine
DX: R55 Syncope and collapse (principal); R00.0 Tachycardia, unspecified; S01.511A Laceration without foreign body of lip, initial encounter; E11.621 Type 2 diabetes mellitus with foot ulcer; L97.519 Non-pressure chronic ulcer of other part of right foot with unspecified severity; I10 Essential (primary) hypertension; Z79.4 Long term (current) use of insulin; W19.XXXA Unspecified fall, initial encounter
CPT/HCPCS: 80053; 83735; 84484; 85007; 85025; 86803; 87040; 87389; 87636; 93005; 96361; 96374; 99284; 99285; J2405; J7030

== ENCOUNTER 2025-09-04 10:01 | Outpatient (CLI) | payer OTHER, SELFPAY ==
--- NOTE | 2025-09-04 10:03 | XR_ITS ---
FINAL REPORT CLINICAL HISTORY: Evaluate bone healing post surgery COMPARISON: 07/18/2025 FINDINGS: AP, oblique and lateral views of the right foot were obtained. Plaster cast has been removed. 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 There is no acute fracture. No evidence of bone destruction. Heterotopic ossification in the fracture bed is noted. There appears to be soft tissue edema along the lateral midfoot. IMPRESSION: Postoperative changes with soft tissue edema. Reviewed, Interpreted and Dictated by Zulay Villeda MD Transcribed by Jaye Chaidez Authenticated and [facility]
== END 2025-09-04 23:59 ==
LOC: RAD 10:01
PROVIDERS: PCP Internal Medicine Adolescent Medicine; Visit Provider Podiatrist
DX: Z09 Encounter for follow-up examination after completed treatment for conditions other than malignant neoplasm (principal); Z89.421 Acquired absence of other right toe(s)
CPT/HCPCS: 73630